=== PATIENT | male | born 1980 | race Caucasian/White ===

== ENCOUNTER 2017-05-14 21:00 | Emergency (ER) | payer OTHER ==
[~2017-05-14] VITALS: Ht 185.4 cm; Wt 97.5 kg
[2017-05-14 21:15] VITALS: BP 118/72
[2017-05-14] MEDS ORDERED: NKM (21:19)
[2017-05-14] MEDS ORDERED: Tetanus/Diptheria/Pertussis Vaccine 0.5ml Syr IM ONE (21:45)
[2017-05-14] MEDS ORDERED: IBUPROFEN600 MG ORAL (22:27)
[2017-05-14] MEDS ORDERED: KEFLEX500 MG ORAL (22:27)
--- NOTE | 2017-05-14 22:28 | Emergency Room Report ---
History of Present Illness General Chief Complaint: Laceration Source: Patient Present Illness HPI This is a 37-year-old male who is right-hand dominant. He works as a nearby restaurant. He sustained a laceration to his finger when he grabbed a broken dish in the dietary assistant. This occurred about 2 hours prior to arrival. No other injury. Bleeding controlled. Allergies: Coded Allergies: No Known Allergies (Unverified , 05/14/17) Patient History Past Medical History: none, see triage record, old chart reviewed Past Surgical History: none Pertinent Family History: none Social History: Reports: smoking Immunizations: other Reviewed Nursing Documentation: PMH: Agreed, PSxH: Agreed Nursing Documentation-PMH Hx Gastrointestinal Problems: Yes - HEMORRHOIDS Review of Systems Eye: Denies: blurred vision, eye pain ENT: Denies: ear pain, nose congestion, throat swelling Respiratory: Denies: cough, shortness of breath Cardiovascular: Denies: chest pain, palpitations Gastrointestinal: Denies: abdominal pain, diarrhea, nausea, vomiting Musculoskeletal: Denies: back pain, joint pain Skin: Denies: rash Neurological: Denies: headache, numbness Endocrine: Denies: increased thirst, increased urine Hematologic/Lymphatic: Denies: easy bruising All Other Systems: negative except mentioned in HPI Physical Exam Vital Signs Date Time Temp Pulse Resp B/P Pulse Ox O2 Delivery O2 Flow Rate FiO2 05/14/17 21:12 97.3 84 16 118/72 97 Room Air vitals normal Sp02 EP Interpretation: reviewed, normal General Appearance: well appearing, no apparent distress, alert Head: normocephalic, atraumatic Eyes: bilateral eye EOMI, bilateral eye PERRL ENT: hearing grossly normal, normal pharynx Neck: full range of motion, supple, no meningismus Respiratory: chest non-tender, lungs clear, normal breath sounds Cardiovascular #1: regular rate, rhythm, no murmur Gastrointestinal: normal bowel sounds, non tender, no mass, no organomegaly, no bruit, non-distended Musculoskeletal: back normal, gait/station normal, normal range of motion, other - Over the pad of the right ring finger, there is any flap laceration measuring about 3 cm. No foreign body. Full range of motion the MCP, PIP, DIP joint. Sensation normal. Neurologic: alert, oriented x3 Psychiatric: mood/affect normal Skin: warm/dry Procedures Laceration/Wound Repair Laceration/Wound Repair : Consent: Verbal Wound Location: upper extremity Wound's Depth, Shape: flap, stellate, contused tissue Wound Length (cm): 3 Wound Explored: clean Irrigated w/ Saline (ccs): 1000 Betadine Prep?: No Anesthesia: 1% Lidocaine Volume Anesthetic (ccs): 2 Wound Repaired With: sutures Suture Size/Type: 5:0, proline Number of Sutures: 6 Patient Tolerated: Well Complications: None Progress Area clean with chlorhexidine. Digital block with 1% lidocaine without epinephrine. After good anesthesia I swollen wound and irrigated. Closed with 6 interrupted 5-0 Prolene suture. Patient tolerated procedure without a problem. Medical Decision Making Diagnostic Impression: Primary Impression: Laceration of finger Qualified Codes: S61.214A - Laceration without foreign body of right ring finger without damage to nail, initial encounter ER Course Patient with a finger laceration. No foreign body. No tendon laceration. We' ll discharge home. Last Vital Signs Date Time Temp Pulse Resp B/P Pulse Ox O2 Delivery O2 Flow Rate FiO2 05/14/17 21:15 97.3 16 118/72 97 Room Air 05/14/17 21:12 84 Status: improved Disposition: HOME, SELF-CARE Condition: Stable Scripts Ibuprofen* (MOTRIN*) 600 Mg Tablet 600 MG ORAL THREE TIMES A DAY, #30 TAB 0 Refills Prov: FAZAL GRAY M.D. 05/14/17 Cephalexin* (KEFLEX*) 500 Mg Capsule 500 MG ORAL TID, #21 CAP 0 Refills Prov: FAZAL GRAY M.D. 05/14/17 Referrals: NOT CHOSEN IPA/,REFERRING (PCP) Patient Instructions: Laceration Care, Adult Additional Instructions: Followup with Worker's CompOmar Salinas in 7 days for recheck and suture removal. Return if symptom worsen. Keep wound clean. FAZAL GRAY M.D. May 14, 2017 22:28
[2017-05-14 22:35] VITALS: BP 118/72
== END 2017-05-14 22:35 | disposition home or self-care (01) ==
LOC: EMR 21:37
DX: S61.214A Laceration without foreign body of right ring finger without damage to nail, initial encounter (principal); Z23 Encounter for immunization; W45.8XXA Other foreign body or object entering through skin, initial encounter; Y93.G1 Activity, food preparation and clean up; Y99.0 Civilian activity done for income or pay; F17.200 Nicotine dependence, unspecified, uncomplicated
CPT/HCPCS: 90471; 90715; 96372